=== PATIENT | male | born 1980 | race Caucasian/White ===

== ENCOUNTER 2025-03-31 18:54 | Emergency (ER) | payer OTHER ==
[~2025-03-31] VITALS: Ht 170.2 cm; Wt 65.8 kg
[2025-03-31 19:01] VITALS: TEMP 98
[2025-03-31 19:10] LABS: PLATELET COUNT (AUTO) 322 K/uL (150-450); RED BLOOD CELL COUNT(AUTO) 5.83 MIL/uL (4.5-6.0); RED CELL DISTRIBUTION WIDTH 13.8 % (11.5-15.0); WHITE BLOOD COUNT (AUTO) 10.0 K/uL (4.3-11.0)
[2025-03-31] MEDS ORDERED: NITROGLYCERIN 0.4 MG/TAB BOTTLE ONE (19:14)
[2025-03-31] MEDS ORDERED: ASPIRIN 325 MG TABLET ONE (19:14)
[2025-03-31] MEDS: ASPIRIN 325 MG TABLET PO ONE (19:18)
[2025-03-31] MEDS: NITROGLYCERIN 0.4 MG/TAB BOTTLE SL ONE (19:18)
[2025-03-31 19:30] LABS: CALCIUM, SERUM 8.8 mg/dL (8.5-10.1); CREATININE 1.0 mg/dL (0.6-1.3); NT-PRO BNP 2210 pg/mL (0-125); SODIUM SERUM 133 mmol/L (136-145); UREA NITROGEN, BLOOD 28 mg/dL (7-18)
[2025-03-31 22:08] VITALS: BP 171/90; O2SAT 99
[2025-03-31] MEDS ORDERED: KETOROLAC TROMETHAMINE 15 MG/ML VIAL ONE (22:54)
[2025-03-31] MEDS: KETOROLAC TROMETHAMINE 15 MG/ML VIAL IV ONE (22:56)
== END 2025-04-01 03:50 ==
LOC: ER 18:56
DX: R07.9 Chest pain, unspecified (principal); I25.10 Atherosclerotic heart disease of native coronary artery without angina pectoris; E11.9 Type 2 diabetes mellitus without complications; I25.2 Old myocardial infarction; I45.4 Nonspecific intraventricular block; I69.351 Hemiplegia and hemiparesis following cerebral infarction affecting right dominant side; Z95.5 Presence of coronary angioplasty implant and graft
CPT/HCPCS: 99285; 96374; 71045; 93005; 85025; 80048; 36415; 84484 ×2; 83880; J1885

== ENCOUNTER 2025-05-10 00:12 | Emergency (ER) | payer OTHER ==
[~2025-05-10] VITALS: Ht 170.2 cm; Wt 64.9 kg
[2025-05-10 00:39] LABS: PLATELET COUNT (AUTO) 381 K/uL (150-450); RED BLOOD CELL COUNT(AUTO) 5.71 MIL/uL (4.5-6.0); RED CELL DISTRIBUTION WIDTH 13.8 % (11.5-15.0); WHITE BLOOD COUNT (AUTO) 12.0 K/uL (4.3-11.0)
[2025-05-10] MEDS ORDERED: KETOROLAC TROMETHAMINE INJ 30 MG/ML VIAL ONE (00:41)
[2025-05-10] MEDS: KETOROLAC TROMETHAMINE 15 MG/ML VIAL IV ONE (00:44)
[2025-05-10 00:46] LABS: CALCIUM, SERUM 8.9 mg/dL (8.5-10.1); CREATININE 1.0 mg/dL (0.6-1.3); SODIUM SERUM 140 mmol/L (136-145); UREA NITROGEN, BLOOD 21 mg/dL (7-18)
[2025-05-10 01:01] LABS: INR 1.04 (0.91-1.10)
[2025-05-10 03:21] VITALS: BP 148/96; TEMP 98.1; O2SAT 99
== END 2025-05-10 06:32 | disposition home or self-care (01) ==
LOC: ER 00:14
DX: R07.89 Other chest pain (principal); E11.9 Type 2 diabetes mellitus without complications; I69.351 Hemiplegia and hemiparesis following cerebral infarction affecting right dominant side; I25.2 Old myocardial infarction
CPT/HCPCS: 99285; 96374; 71045; 93005; 85025; 80048; 85378; 36415; 84484 ×2; 85730; J1885